=== PATIENT | female | born 1955 | race Caucasian/White ===

== ENCOUNTER 2023-07-26 10:20 | Emergency (ER) | payer OTHER ==
[~2023-07-26] VITALS: Ht 157.5 cm; Wt 90.2 kg
[2023-07-26] MEDS: LIDOCAINE 1% HCL (LOCAL ANESTH.) INJ 20ML MDV ID ONE (10:47)
[2023-07-26] MEDS ORDERED: CEPH500C PO (11:21)
[2023-07-26] MEDS ORDERED: ACE3T PO (11:21)
[2023-07-26] MEDS ORDERED: IBUP-1454 PO (11:21)
[2023-07-26 11:22] VITALS: BP 107/47; PULSE 83; RESP 16; TEMP 98.1; O2SAT 98
[2023-07-26] MEDS: TETANUS-DIPTH-ACEL PERTUSSIS 0.5ML SYR Tdap IM ONE (11:39)
== END 2023-07-26 11:40 | disposition home or self-care (01) ==
LOC: ER 10:20
DX: L05.01 Pilonidal cyst with abscess (principal)
CPT/HCPCS: 10080; 90471; 90715; 99283; J2001